=== PATIENT | female | born 1955 | race Caucasian/White ===

== ENCOUNTER 2022-04-11 17:18 | Emergency (ER) | payer BC ==
[~2022-04-11] VITALS: Ht 154.9 cm; Wt 79.4 kg
[2022-04-11] MEDS ORDERED: PREDNISONE20 M1 PO (20:13)
== END 2022-04-11 20:26 | disposition home or self-care (01) ==
LOC: ED 17:18
DX: G51.0 Bell's palsy (principal); Z88.0 Allergy status to penicillin; Z88.2 Allergy status to sulfonamides; Z88.8 Allergy status to other drugs, medicaments and biological substances